=== PATIENT | female | born 1990 | race Two or more races ===

== ENCOUNTER → 2020-07-08 | Outpatient (CLI) | payer BC | END | disposition home or self-care (01) | LOC: MRI 12:32 → EDSEX 12:32 | PROVIDERS: ATTEND Internal Medicine Nephrology | DX: M19.011 Primary osteoarthritis, right shoulder (principal) | CPT/HCPCS: 73221 ==

== ENCOUNTER → 2020-07-28 | Outpatient (CLI) | payer BC ==
[2020-07-28 11:13] LABS: CLARITY URINE CLOUDY (CLEAR); COLOR URINE YELLOW (YELLOW); KETONES URINE NEGATIVE (NEGATIVE); LEUKOCYTE ESTERASE URINE 1+ (NEGATIVE); NITRITE URINE NEGATIVE (NEGATIVE); OCCULT BLOOD URINE NEGATIVE (NEGATIVE); PH URINE 5.5 (4.5-8.0); PROTEIN URINE NEGATIVE (NEGATIVE); SPECIFIC GRAVITY URINE 1.027 (1.005-1.030); UROBILINOGEN URINE 0.2 E.U./dL (0.2-1.0)
[2020-07-28 11:15] LABS: BASOPHILS % 0.6 % (0.0-2.0); EOSINOPHILS % 2.6 % (0.0-5.0); HEMATOCRIT. 40.2 % (36.0-48.0); HEMOGLOBIN. 13.3 g/dL (12.0-16.0); LYMPHOCYTES % 37.7 % (20.0-50.0); MEAN CORPUSCULAR HEMOGLOBIN 29.9 pg (28.0-32.0); MEAN PLATELET VOLUME 9.1 fl (7.4-10.4); MONOCYTES % 6.6 % (2.0-8.0); NEUTROPHILS % 52.5 % (40.0-76.0); PLATELET 266 x1000/uL (130-400); RED BLOOD CELL COUNT 4.47 mill/uL (4.2-5.4)
[2020-07-28 11:17] LABS: CHLORIDE 111 mEq/L (98-107)
[2020-07-28 11:24] LABS: LDL CHOLESTEROL 147 mg/dL (5-100)
[2020-07-28 11:25] LABS: HDL CHOLESTEROL 47 mg/dL (40-59)
[2020-07-28 11:26] LABS: T4 FREE 0.85 ng/dL (0.76-1.46)
[2020-07-29 08:11] LABS: *CREATININE RANDOM URINE 229.4 mg/dL (Not Estab.); MICROALBUMIN RANDOM URINE 21.6 ug/mL (Not Estab.)
== END | disposition home or self-care (01) ==
LOC: LAB 10:40
PROVIDERS: ATTEND Internal Medicine Nephrology
DX: Z00.01 Encounter for general adult medical examination with abnormal findings (principal); R03.0 Elevated blood-pressure reading, without diagnosis of hypertension; F41.9 Anxiety disorder, unspecified; E66.01 Morbid (severe) obesity due to excess calories; G47.9 Sleep disorder, unspecified
CPT/HCPCS: 36415; 80053; 80061; 81003; 82043; 82570; 83036; 84439; 84443; 85025

== ENCOUNTER 2021-01-26 03:16 | Emergency (ER) | payer BC ==
[~2021-01-26] VITALS: Ht 160 cm; Wt 90.0 kg
[2021-01-26] MEDS ORDERED: VISCOUS LIDOCAINE 2% 15 ML UDC PO STA (03:41)
[2021-01-26] MEDS ORDERED: MAGNESIUM/ALUMINUM HYDROXIDE/SIMETHICONE 30ML UDC PO STA (03:41)
[2021-01-26 03:58] LABS: BASOPHILS % 0.8 % (0.0-2.0); EOSINOPHILS % 4.1 % (0.0-5.0); HEMATOCRIT. 38.5 % (36.0-48.0); HEMOGLOBIN. 12.6 g/dL (12.0-16.0); LYMPHOCYTES % 24.6 % (20.0-50.0); MEAN CORPUSCULAR HEMOGLOBIN 29.3 pg (28.0-32.0); MEAN CORPUSCULAR VOLUME 89.8 fL (81.0-99.0); NEUTROPHILS % 64.5 % (40.0-76.0); PLATELET 237 x1000/uL (130-400); RED BLOOD CELL COUNT 4.29 mill/uL (4.2-5.4); RED CELL DISTRIBUTION WIDTH 13.9 % (11.6-14.6)
[2021-01-26 04:14] LABS: CHLORIDE 105 mEq/L (98-107)
[2021-01-26 06:10] VITALS: BP 140/99
[2021-01-26] MEDS ORDERED: FLUO10CA25 PO (18:55)
== END 2021-01-26 06:34 | disposition home or self-care (01) ==
LOC: ER 03:16
DX: R10.12 Left upper quadrant pain (principal); R03.0 Elevated blood-pressure reading, without diagnosis of hypertension; J45.909 Unspecified asthma, uncomplicated
CPT/HCPCS: 36415; 76700; 80053; 85025; 99284

== ENCOUNTER 2021-01-26 12:39 | Inpatient (IN) | payer BC ==
[~2021-01-26] VITALS: Ht 162.6 cm; Wt 89.8 kg
[2021-01-26] MEDS ORDERED: HALOPERIDOL LACTATE 5MG/ML VIAL IM ONE (13:15)
[2021-01-26 14:04] LABS: BASOPHILS % 0.4 % (0.0-2.0); EOSINOPHILS % 2.8 % (0.0-5.0); HEMATOCRIT. 39.9 % (36.0-48.0); HEMOGLOBIN. 13.4 g/dL (12.0-16.0); MEAN CORPUSCULAR HEMOGLOBIN 29.9 pg (28.0-32.0); MEAN PLATELET VOLUME 9.3 fl (7.4-10.4); NEUTROPHILS % 66.8 % (40.0-76.0); PLATELET 284 x1000/uL (130-400); RED BLOOD CELL COUNT 4.48 mill/uL (4.2-5.4); RED CELL DISTRIBUTION WIDTH 14.2 % (11.6-14.6)
[2021-01-26 14:07] LABS: CHLORIDE 104 mEq/L (98-107)
[2021-01-26 14:08] LABS: CLARITY URINE CLOUDY (CLEAR); COLOR URINE YELLOW (YELLOW); KETONES URINE TRACE (NEGATIVE); LEUKOCYTE ESTERASE URINE 1+ (NEGATIVE); NITRITE URINE NEGATIVE (NEGATIVE); OCCULT BLOOD URINE NEGATIVE (NEGATIVE); PH URINE 7.5 (4.5-8.0); PROTEIN URINE 1+ (NEGATIVE); SPECIFIC GRAVITY URINE 1.022 (1.005-1.030)
[2021-01-26 14:10] LABS: PROTHROMBIN TIME 11.2 sec (9.6-11.0)
[2021-01-26] MEDS ORDERED: CEPHALEXIN 250MG CAPSULE PO NR (16:00)
[2021-01-26 16:05] VITALS: BP 133/97
[2021-01-26] MEDS ORDERED: FLUO10CA25 PO (18:55)
[2021-01-26] MEDS ORDERED: NALOXONE HCL 0.4MG/ML VIAL IV PRN (19:00)
[2021-01-26] MEDS ORDERED: MORPHINE SULFATE 2 MG/ML CPJ (NOT FOR IM USE) IV PRN ×2 (19:00→21:00)
[2021-01-26] MEDS ORDERED: ONDANSETRON HCL 4MG/2ML INJ IV PRN ×2 (19:00→21:00)
[2021-01-26 20:00] VITALS: BP 123/80
[2021-01-26] MEDS ORDERED: LORAZEPAM 2MG/ML CPJ IV PRN (21:00)
[2021-01-26] MEDS ORDERED: HYDROCODONE/ACETAMINOPHEN 5/325MG TABLET PO PRN (21:00)
[2021-01-26] MEDS ORDERED: ACETAMINOPHEN 325MG TABLET PO PRN ×2 (21:00)
[2021-01-26] MEDS: SODIUM CHLORIDE 0.9% 1,000 ML IV SCH (21:00)
[2021-01-26] MEDS: ENOXAPARIN 30MG/0.3ML SYR SUBCUT SCH (21:00)
[2021-01-26] MEDS ORDERED: CLONIDINE 0.1MG TABLET PO PRN (21:00)
[2021-01-27] VITALS: BP 133/90
[2021-01-27] MEDS: CEFTRIAXONE 1,000 MG in DEXTROSE 5% WATER 50 ML IV SCH ×2 (00:12→21:27)
[2021-01-27 04:00] VITALS: BP 109/70
[2021-01-27] MEDS: SODIUM CHLORIDE 0.9% 1,000 ML IV SCH ×2 (07:32→16:51)
[2021-01-27 08:00] VITALS: BP 116/81
[2021-01-27 08:32] LABS: BASOPHILS % 0.3 % (0.0-2.0); EOSINOPHILS % 9.6 % (0.0-5.0); HEMATOCRIT. 37.5 % (36.0-48.0); HEMOGLOBIN. 12.5 g/dL (12.0-16.0); LYMPHOCYTES % 40.2 % (20.0-50.0); MEAN CORPUSCULAR HEMOGLOBIN 29.9 pg (28.0-32.0); MEAN CORPUSCULAR VOLUME 89.7 fL (81.0-99.0); MEAN PLATELET VOLUME 9.1 fl (7.4-10.4); NEUTROPHILS % 42.9 % (40.0-76.0); PLATELET 249 x1000/uL (130-400); RED BLOOD CELL COUNT 4.18 mill/uL (4.2-5.4)
[2021-01-27 08:37] LABS: CHLORIDE 106 mEq/L (98-107)
[2021-01-27] MEDS: FOLIC ACID 1MG TABLET PO SCH (09:11)
[2021-01-27] MEDS: ENOXAPARIN 30MG/0.3ML SYR SUBCUT SCH ×2 (09:12→21:24)
[2021-01-27 12:00] VITALS: BP 135/97
[2021-01-27 16:00] VITALS: BP 132/94
[2021-01-27 18:06] LABS: HEPATITIS B SURFACE ANTIGEN NEGATIVE
[2021-01-27 18:09] LABS: VITAMIN B12 SERUM 515 pg/mL (211-911)
[2021-01-27 18:36] LABS: HEPATITIS A AB IGM NEGATIVE (NEGATIVE)
[2021-01-27] MEDS ORDERED: IOHEXOL-300 100 ML BOTTLE ONE (19:41)
[2021-01-27 20:00] VITALS: BP 128/89
[2021-01-28] VITALS: BP 134/94
[2021-01-28] MEDS: SODIUM CHLORIDE 0.9% 1,000 ML IV SCH (03:04)
[2021-01-28 04:00] VITALS: BP 108/69
[2021-01-28] MEDS: FOLIC ACID 1MG TABLET PO SCH (08:44)
[2021-01-28] MEDS: ENOXAPARIN 30MG/0.3ML SYR SUBCUT SCH (08:44)
[2021-01-28 15:23] VITALS: BP 122/88
[2021-01-28] MEDS ORDERED: ATORVASTATIN CALCIUM 40MG TABLET PO SCH (21:00)
== END 2021-01-28 15:49 | disposition home or self-care (01) | DRG 690 ==
LOC: ER 12:39 → 6EST 14:52 → ENRESERV 15:05
PROVIDERS: ADMIT Internal Medicine Nephrology; ATTEND Internal Medicine Nephrology
DX: N39.0 Urinary tract infection, site not specified (principal); E87.1 Hypo-osmolality and hyponatremia; J45.909 Unspecified asthma, uncomplicated; K75.9 Inflammatory liver disease, unspecified; K76.0 Fatty (change of) liver, not elsewhere classified; E28.2 Polycystic ovarian syndrome; F41.9 Anxiety disorder, unspecified; E78.1 Pure hyperglyceridemia; Z20.822 Contact with and (suspected) exposure to COVID-19; R73.03 Prediabetes; Z71.3 Dietary counseling and surveillance
CPT/HCPCS: 36415; 74177; 74181; 80048; 80053; 80061; 80076; 81003; 82248; 82607; 83036; 83735; 85025; 86705; 86709; 86803; 87340; 87426; 93005; 99285; J0696; J1630; J1650; J7030; J7060; Q9967